=== PATIENT | female | born 1975 | race Caucasian/White ===

== ENCOUNTER → 2017-10-24 | Outpatient (CLI) | payer BC ==
[~2017-10-24] MED LIST: ALPR.5 PO; AMBI10TA PO; BUSP1TAB PO
--- NOTE | 2017-10-25 14:32 | EKG ---
Date Performed: 10/24/2017 Time Performed: 13:32:50 PTAGE: 42 years EKG: Sinus bradycardia Septal T wave changes are nonspecific Borderline ECG NO PREVIOUS TRACING DOCTOR: Francisca Casarez Interpretating Date/Time 10/25/2017 14:31:31
== END ==
LOC: CPRE 12:54
PROVIDERS: ATTEND Obstetrics & Gynecology
DX: Z01.810 Encounter for preprocedural cardiovascular examination (principal); N92.0 Excessive and frequent menstruation with regular cycle; N94.6 Dysmenorrhea, unspecified; N83.209 Unspecified ovarian cyst, unspecified side; R10.2 Pelvic and perineal pain; R94.31 Abnormal electrocardiogram [ECG] [EKG]
CPT/HCPCS: 93005

== ENCOUNTER 2017-10-26 11:58 | Observation (INO) | payer BC ==
--- NOTE | 2017-10-25 21:39 | MH ---
cc: KASSY KIRKPATRICK DATE OF : [birth year] DATE OF ADMISSION: 10/26/2017 ADMITTING DIAGNOSIS: Menorrhagia, dysmenorrhea, ovarian cyst. HISTORY OF PRESENT ILLNESS The patient is a 42-year-old white female para 2-0-1-2 with a prolonged history of pelvic pain for over ten years with irregular heavy cycles and passage of large clots of blood per vagina. Her pain increases with menstrual cycle. She had a left ovarian cystectomy in 2011 and laparoscopy, D&C in May 2016 with lysis of adhesions. Because of her recurrent pain, refractory to conservative therapy, she is now admitted for hysterectomy. PAST SURGICAL HISTORY: In addition to the above-mentioned procedures. She has had two C-sections, one in 2000, one in 2005. MEDICATIONS: 1. Ambien. 2. Busperone. 3. Simvastatin. ALLERGIES: Penicillin Cipro. SOCIAL HISTORY She is employed. She is . Alcohol occasional, tobacco and drugs are none. FAMILY HISTORY: Noncontributory. PHYSICAL EXAMINATION: A well-developed, well-nourished white female. Vital signs stable. HEENT: Exam is normal. Chest: Chest is clear. Heart: Regular rate. Breasts: Symmetrical. Abdomen: Benign. Pelvic: Normal external genitalia, BUS, vagina is normal, cervix normal. Uterus is normal size. Adnexa nonpalpable. ASSESSMENT: As above. PLAN: She is now admitted for D&C, frozen section. Planned laparoscopy, planned LASH BSO, possible KALYAN/BSO. While in the office, I explained the procedures, risks and complications. The patient would like to proceed. She is aware that the procedure may not alleviate all of her pain but would like to proceed. MD ADAMA Yee/CHRIS /9:12 PM /9:23 PM
[~2017-10-26] VITALS: Ht 160 cm; Wt 77.8 kg
[2017-10-26] MEDS ORDERED: ONDANSETRON HCL 4 MG/2 ML VIAL IV ONE (12:00)
[2017-10-26] MEDS ORDERED: ROCURONIUM INJ 50 MG/5 ML SYRINGE IV PUSH ONE (12:00)
[2017-10-26] MEDS ORDERED: DEXAMETHASONE SOD PHOS 4 MG/ML VIAL IV ONE (12:00)
[2017-10-26] MEDS ORDERED: GLYCOPYRROLATE 1 MG/5 ML SYRINGE IV PUSH ONE (12:00)
[2017-10-26] MEDS ORDERED: PROPOFOL 200 MG/20 ML AMP IV ONE (12:00)
[2017-10-26] MEDS ORDERED: PHENYLEPH/NS 1000 MCG/10 ML SYR IV ONE (12:00)
[2017-10-26] MEDS ORDERED: NEOSTIGMINE 5 MG/5 ML SYRINGE IV PUSH ONE (12:00)
[2017-10-26] MEDS ORDERED: LIDOCAINE HCL 1% PF 5 ML SYRINGE OTHER ONE (12:00)
[2017-10-26] MEDS ORDERED: ePHEDrine/NS 25 MG/5 ML SYRINGE IV ONE (12:00)
[2017-10-26] MEDS ORDERED: KETOROLAC TROMETHAMINE 30 MG/ML (IVP) VIAL IV PUSH ONE (12:00)
[2017-10-26] MEDS ORDERED: ESTROGENS CONJUGATED VAG CREA 15 APPL/30 GM TUBE ONE (12:01)
[2017-10-26] MEDS ORDERED: LACTATED RINGER'S 1000 ML IV PRN (12:45)
[2017-10-26] MEDS ORDERED: ACETAMINOPHEN 1000 MG/100 ML 100 ML IV SCH (12:45)
[2017-10-26] MEDS ORDERED: METOPROLOL TARTRATE 25 MG TAB PO PRN (12:45)
[2017-10-26] MEDS ORDERED: SODIUM CHLORID 0.9% 500 ML IV PRN (12:45)
[2017-10-26] MEDS ORDERED: POVIDONE IODINE 5% (ANTISEPSIS KIT) 4 APPLICATIONS EACH NARE PRN (12:45)
[2017-10-26] MEDS ORDERED: CLINDAMYCIN 600 MG/NS PREMIX 50 ML IV SCH (12:45)
[2017-10-26] MEDS ORDERED: CHLORHEXIDINE GLUCONATE 2 % 1 PACK (2 CLOTHS) TOPICAL PRN (12:45)
[2017-10-26] MEDS ORDERED: CLINDAMYCIN PHOS 600 MG/4 ML VIAL ONE (12:51)
[2017-10-26] MEDS ORDERED: BUPIVACAINE LIPOSOME PF 1.3% 20 ML VIAL ONE (15:30)
[2017-10-26] MEDS: D5-1/2 NS + KCL 20 MEQ INJ 1,000 ML IV SCH ×2 (15:35→16:30)
[2017-10-26] MEDS ORDERED: ONDANSETRON HCL 4 MG/2 ML VIAL IV PUSH PRN (15:45)
[2017-10-26] MEDS ORDERED: PROMETHAZINE INJ 25 MG/ML VIAL IM PRN (15:45)
[2017-10-26] MEDS ORDERED: HYDROmorphone HCL PF 1 MG/ML VIAL IV PUSH PRN (15:45)
[2017-10-26] MEDS ORDERED: diphenhydrAMINE HCL 25 MG CAP PO PRN (15:45)
[2017-10-26] MEDS ORDERED: ZOLPIDEM TARTRATE 5 MG TAB PO PRN (15:45)
[2017-10-26] MEDS ORDERED: MORPHINE SULFATE 8 MG/ML INJ ONE (15:57)
[2017-10-26] MEDS ORDERED: ACETAMINOPHEN 1000 MG/100 ML VIAL IV SCH (16:00)
[2017-10-26] MEDS ORDERED: KETOROLAC TROMETHAMINE 30 MG/ML (IVP) VIAL IVP SCH (16:00)
[2017-10-26] MEDS ORDERED: ALPRAZolam 0.5 MG TAB PO PRN (16:00)
[2017-10-26] MEDS ORDERED: *morphine SULFATE 10 MG/ML PERIprocedure ONLY ONE ×2 (16:03→16:11)
[2017-10-26] MEDS ORDERED: *MEPERIDINE 25 MG INJ VIAL PERIprocedural Use ONLY ONE (16:03)
[2017-10-26] MEDS ORDERED: LORazepam 2 MG/ML VIAL ONE (16:12)
[2017-10-26] MEDS ORDERED: MIDAZOLAM HCL 2 MG/2 ML VIAL ONE (16:15)
[2017-10-26] MEDS ORDERED: LORazepam 2 MG/ML VIAL IV PUSH ONE (17:00)
[2017-10-26] MEDS ORDERED: DO NOT ADM ANY ANTICOAGULANT DRUGS PRN (17:00)
[2017-10-26] MEDS ORDERED: PILL SPLITTER OTHER PRN (17:15)
[2017-10-26 18:00] VITALS: BP 106/66; PULSE 67; RESP 12; TEMP 97.7; O2SAT 96
[2017-10-26 20:00] VITALS: BP 109/69; PULSE 72; RESP 18; TEMP 97.9; O2SAT 96
[2017-10-26 21:57] LABS: HEMATOCRIT 40.7 % (35.0-46.0); HEMOGLOBIN 13.9 GM/DL (11.6-15.3)
[2017-10-26] MEDS: busPIRone HCL 5 MG TAB PO SCH (22:00)
[2017-10-26] MEDS: KETOROLAC TROMETHAMINE 30 MG/ML (IVP) VIAL IVP SCH (22:01)
[2017-10-26] MEDS: DOCUSATE SODIUM 100 MG CAP PO SCH (22:01)
[2017-10-26 23:45] VITALS: BP 86/56; PULSE 59; RESP 18; TEMP 98; O2SAT 94
[2017-10-27] MEDS: ACETAMINOPHEN 1000 MG/100 ML VIAL IV SCH ×2 (00:04→08:28)
[2017-10-27 04:00] VITALS: BP 81/48; PULSE 58; RESP 14; TEMP 97.9
[2017-10-27] MEDS: KETOROLAC TROMETHAMINE 30 MG/ML (IVP) VIAL IVP SCH ×2 (04:24→10:05)
[2017-10-27 05:30] VITALS: BP 94/70; PULSE 66
[2017-10-27 05:52] LABS: AUTOMATED NEUTROPHIL # 8.9 TH/MM3 (1.8-7.7); BASOPHIL % 0.1 % (0.0-2.0); EOSINOPHIL % 0.1 % (0.0-4.0); LYMPH % 8.3 % (9.0-44.0); LYMPHOCYTE # 0.8 TH/MM3 (1.0-4.8); MEAN CELL VOLUME 89.8 FL (80.0-100.0); MEAN CORPUSCULAR HGB CONC 33.4 % (32.0-36.0); MEAN PLATELET VOLUME 7.3 FL (7.0-11.0); MONO % 4.3 % (0.0-8.0); MONOCYTE # 0.4 TH/MM3 (0-0.9); NEUT % 87.2 % (16.0-70.0); PLATELET COUNT 310 TH/MM3 (150-450); RED BLOOD COUNT 4.35 MIL/MM3 (4.00-5.30); RED CELL DISTRIBUTION WIDTH 12.8 % (11.6-17.2); WHITE BLOOD COUNT 10.2 TH/MM3 (4.0-11.0)
[2017-10-27 06:19] LABS: BICARBONATE 25.3 MEQ/L (21.0-32.0); CALCIUM 8.6 MG/DL (8.5-10.1); CREATININE 0.67 MG/DL (0.50-1.00)
[2017-10-27 08:00] VITALS: BP_SYST 79; BP_SYST 81; BP_DIAS 51; BP_DIAS 58; PULSE 57; RESP 14; TEMP 97.9; O2SAT 97
[2017-10-27] MEDS: D5-1/2 NS + KCL 20 MEQ INJ 1,000 ML IV SCH (08:28)
[2017-10-27] MEDS: DOCUSATE SODIUM 100 MG CAP PO SCH (08:29)
[2017-10-27] MEDS: busPIRone HCL 5 MG TAB PO SCH (10:04)
--- NOTE | 2017-10-27 10:17 | MP ---
cc: KASSY KIRKPATRICK MD DATE OF SURGERY: 10/26/2017 PREOPERATIVE DIAGNOSIS Menorrhagia, dysmenorrhea. POSTOPERATIVE DIAGNOSIS Menorrhagia, dysmenorrhea, pathology pending. PROCEDURE A D&C, frozen section followed by MARISA TAYLOR. ANESTHESIA General ET. SURGEON Kassy Kirkpatrick MD [employer] WORKER Rose Solis. ESTIMATED BLOOD LOSS About 100 ccs. FLUIDS 1 liter crystalloid. OBJECTIVE FINDINGS Following induction of adequate general endotracheal anesthesia, the patient was prepped and draped supine on the operating table in the dorsal lithotomy position in the usual sterile fashion with the bladder being drained via in and out catheterization. Exam under anesthesia revealed a upper limits of normal size uterus, adnexa nonpalpable. The cervix was exposed with handheld retractors. Cervix and uterus sounded to 8 cm. The cervix was dilated with a #20 Hanks dilator. Endocervical curetting was obtained with small serrated curette for permanent study, endometrium with small sharp curette for frozen. The cervical tenaculum sites were sutured with 3-0 Chromic for hemostasis. The vaginal instruments were removed. The mowing machine operator's gloves were changed. The abdomen was opened through a 3 cm curving infraumbilical incision using knife to cut down through skin to the fascia. The fascia was opened transversely and the peritoneum opened bluntly with finger dissection. The GelPort was placed, laparoscope was inserted, a 5 port placed in left lower quadrant ___ right lower quadrant. Uterus was about 10-12 weeks' size anterior. The tubes and ovaries were normal. [place]-de-sacs were clear. Liver edge was normal. Working first on the left, harmonic scalpel to take the left ovarian pedicle, left round ligament, left broad ligament, left-side of the bladder flap and left uterine vessels and same on the right. Frozen section returned benign. Harmonic scalpel was used to amputate the fundus from the cervix. A pouch was inserted to extract the uterus, tubes, ovaries intact in the pouch through the GelPort site. Irrigation was performed, no bleeding was evident. Blood pressure test was done, there was no bleeding. Ureters inspected for good peristalsis bilateral. Upper abdomen was normal. The operative site was now coated with Evicel. GelPort was now removed. The peritoneum was sutured with running 2-0 Vicryl, the fascia with a running locking stitch of 0-Vicryl corner to midline and tied, subcu closed with running 3-0 Vicryl and skin with running subcuticular 3-0 Monocryl. The scope was now reinserted through lower ports, used to inspect the GelPort site which was well closed with no entrapment of tissue. Pelvis was inspected and there was no bleeding. The scope was now removed, gas allowed to escape. The ports were removed and sutured with 3-0 Monocryl interrupted. The patient's legs were taken down from the stirrups. She was awakened and taken to the recovery room in good condition. MD ADAMA Yee/KATHERINE /3:35 PM /9:55 AM
[2017-10-27 11:18] VITALS: BP 81/58; PULSE 61; RESP 16
[2017-10-27 12:14] VITALS: BP 87/63; PULSE 61; RESP 16; TEMP 98.1; O2SAT 97
== END 2017-10-27 12:57 | disposition home or self-care (01) ==
LOC: HSDC 11:58 → HSDI 15:39 → H1EA 17:30
PROVIDERS: ADMIT Obstetrics & Gynecology; ATTEND Obstetrics & Gynecology
DX: N92.0 Excessive and frequent menstruation with regular cycle (principal); N94.6 Dysmenorrhea, unspecified; N80.0 Endometriosis of uterus; N83.201 Unspecified ovarian cyst, right side; R10.2 Pelvic and perineal pain
CPT/HCPCS: 00840; 58542; 80048; 85014; 85018; 85025; 88305; 88307; 88331; 94150; 96374; 96376; C9290; G0378; J0131; J1100; J1885; J2060; J2175; J2250; J2270; J2370; J2405; J2710; J3010; J3480; J7120